=== PATIENT | male | born 1940 | race Caucasian/White ===

== ENCOUNTER → 2017-11-25 | Outpatient (CLI) | payer OTHER ==
--- NOTE | 2017-11-26 10:09 | MRI ---
MRI left hip without contrast INDICATION: Spontaneous hip pain difficulty walking acute TECHNIQUE: Noncontrast MR imaging left hip standard protocol FINDINGS: There is a right convex thoracolumbar junction scoliosis on the imcu specialist images. There is a markedly enlarged heterogeneous nodular appearing prostate gland correlate with PSA level and physical exam. Very slight bladder trabeculations. Mild osteoarthrosis of the pubic symphysis. No advanced arthrosis of the hips osteonecrosis or fracture. Proximal hamstring tendons are intact. The left greater trochanteric bursa is markedly inflamed. There is a high-grade interstitial tear nearly full-thickness involving the gluteus minimus tendon adjacent to this. The gluteus medius tendon is intact. No definite hydroxyapatite deposition. Degenerative tear of the anterior superior labrum not unexpected for age. Mild thinning of the ligamentum teres. Diffuse degenerative fraying and volume loss superior labrum. 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
== END ==
LOC: MRI 09:47
PROVIDERS: ATTEND Orthopaedic Surgery
DX: S76.002A Unspecified injury of muscle, fascia and tendon of left hip, initial encounter (principal)